=== PATIENT | male | born 1950 | race Caucasian/White ===

== ENCOUNTER 2017-09-08 09:24 | Observation (INO) | payer MEDICARE ==
[~2017-09-08] VITALS: Ht 167.6 cm; Wt 73.5 kg
[2017-09-08 11:00] LABS: BASOPHILS # (AUTO) 0.03 x10^3/uL (0-0.1); BASOPHILS % (AUTO) 0 % (0-1); EOSINOPHILS # (AUTO) 0.07 x10^3/uL (0-0.4); EOSINOPHILS % (AUTO) 1 % (1-7); LYMPHOCYTES # (AUTO) 1.51 x10^3/uL (1-3.4); LYMPHOCYTES % (AUTO) 16 % (22-44); MD NO; MEAN CORPUSCULAR HEMOGLOBIN 34.2 pg (27.5-34.5); MEAN CORPUSCULAR HGB CONC 34.3 g/dL (33.2-36.2); MEAN CORPUSCULAR VOLUME 99.9 fL (81-97); MEAN PLATELET VOLUME 7.6 fL (7.4-10.4); MONOCYTES # (AUTO) 0.77 x10^3/uL (0.2-0.8); MONOCYTES % (AUTO) 8 % (2-9); NEUTROPHILS # (AUTO) 7.16 x10^3/uL (1.8-6.8); NEUTROPHILS % (AUTO) 75 % (42-75); PLATELET COUNT 210 x10^3/uL (130-400); RED BLOOD COUNT 4.64 x10^6/uL (4.38-5.82)
[2017-09-08 11:10] LABS: ALBUMIN 4.1 g/dL (3.4-5.0); ANION GAP 9 mmol/L (5-15); CALCIUM 8.7 mg/dL (8.5-10.1); CHLORIDE 111 mmol/L (98-107); CREATININE 0.73 mg/dL (0.7-1.3)
[2017-09-08 11:14] LABS: TROPONIN I 0.027 ng/mL (0.000-0.045)
[2017-09-08] MEDS ORDERED: ASPIRIN 81 MG TABLET CHEW PO ONE (12:00)
[2017-09-08] MEDS ORDERED: ASPIRIN 81 MG TABLET CHEW ONE (12:11)
[2017-09-08 12:54] VITALS: BP 196/99
[2017-09-08] MEDS ORDERED: ALPR0.5T PO (13:14)
[2017-09-08] MEDS ORDERED: GUAIFENESIN/DM 200-20MG, 10ML UDC PO PRN (16:00)
[2017-09-08] MEDS ORDERED: ONDANSETRON 2MG/ML, 2ML IVPush PRN (16:00)
[2017-09-08] MEDS ORDERED: LABETALOL 5MG/ML, 20ML IVPush PRN (16:00)
[2017-09-08] MEDS ORDERED: HYDROcodone/APAP 5/325 TABLET PO PRN ×2 (16:00)
[2017-09-08] MEDS ORDERED: POLYETHYLENE GLYCOL 17 GM PACKET PO PRN (16:00)
[2017-09-08] MEDS ORDERED: ONDANSETRON ODT 4 MG PO PRN (16:00)
[2017-09-08] MEDS: ENOXAPARIN 40 MG/0.4 ML SQ SCH (16:03)
[2017-09-08] MEDS: LISINOPRIL 20 MG TABLET PO SCH (16:05)
[2017-09-08] MEDS: HYDROCHLOROTHIAZIDE 25 MG TABLET PO SCH (16:05)
[2017-09-08 16:28] LABS: CHOLESTEROL, TOTAL 160 mg/dL (140-239); TRIGLYCERIDES 105 mg/dL (50-200); VLDL CHOLESTEROL 21 mg/dL (0-25)
[2017-09-08 16:32] LABS: CHOL/HDL RATIO 3.5; FREE T4 (FREE THYROXINE) 0.94 ng/dL (0.76-1.46); HDL CHOL % 29 % (26-37); HDL CHOLESTEROL (DIRECT) 46 mg/dL (40-60); LDL CHOLESTEROL,CALCULATED 93 mg/dL (54-169); TROPONIN I 0.028 ng/mL (0.000-0.045)
[2017-09-08 21:37] VITALS: BP 149/75
[2017-09-08 22:55] LABS: TROPONIN I 0.041 ng/mL (0.000-0.045)
[2017-09-09] MEDS ORDERED: DIPHENHYDRAMINE 50 MG CAPSULE PO PRN (00:30)
[2017-09-09 01:49] VITALS: BP 114/62
[2017-09-09 05:22] LABS: BASOPHILS # (AUTO) 0.05 x10^3/uL (0-0.1); BASOPHILS % (AUTO) 1 % (0-1); EOSINOPHILS # (AUTO) 0.17 x10^3/uL (0-0.4); EOSINOPHILS % (AUTO) 3 % (1-7); LYMPHOCYTES # (AUTO) 2.47 x10^3/uL (1-3.4); LYMPHOCYTES % (AUTO) 35 % (22-44); MD NO; MEAN CORPUSCULAR HEMOGLOBIN 34.1 pg (27.5-34.5); MEAN CORPUSCULAR HGB CONC 33.7 g/dL (33.2-36.2); MEAN CORPUSCULAR VOLUME 101.4 fL (81-97); MEAN PLATELET VOLUME 7.7 fL (7.4-10.4); MONOCYTES # (AUTO) 0.77 x10^3/uL (0.2-0.8); MONOCYTES % (AUTO) 11 % (2-9); NEUTROPHILS # (AUTO) 3.56 x10^3/uL (1.8-6.8); NEUTROPHILS % (AUTO) 51 % (42-75); PLATELET COUNT 191 x10^3/uL (130-400); RED BLOOD COUNT 4.36 x10^6/uL (4.38-5.82); RED CELL DISTRIBUTION WIDTH 14.7 % (9.4-14.8)
[2017-09-09 05:27] LABS: ALANINE AMINOTRANSFERASE 29 U/L (12-78); ALBUMIN 3.6 g/dL (3.4-5.0); ANION GAP 10 mmol/L (5-15); CALCIUM 8.4 mg/dL (8.5-10.1); CHLORIDE 106 mmol/L (98-107); CREATININE 0.87 mg/dL (0.7-1.3)
[2017-09-09 05:37] LABS: ALKALINE PHOSPHATASE 60 U/L (45-117); BILIRUBIN,TOTAL 1.5 mg/dL (0.2-1.0); TOTAL PROTEIN 6.4 g/dL (6.4-8.2)
[2017-09-09] MEDS: ASPIRIN 81 MG TABLET EC PO SCH (06:17)
[2017-09-09 07:46] VITALS: BP 138/69
[2017-09-09] MEDS: SENNA/DOCUSATE TABLET PO SCH (07:52)
[2017-09-09] MEDS: LISINOPRIL 20 MG TABLET PO SCH (07:56)
[2017-09-09] MEDS ORDERED: REGADENOSON 0.4 MG/5 ML SYRINGE ONE (08:29)
[2017-09-09 12:58] VITALS: BP 149/73
[2017-09-09] MEDS: HYDROCHLOROTHIAZIDE 25 MG TABLET PO SCH (17:55)
[2017-09-09] MEDS: ENOXAPARIN 40 MG/0.4 ML SQ SCH (17:55)
[2017-09-09 18:50] VITALS: BP 120/62
[2017-09-10 02:27] VITALS: BP 137/71
[2017-09-10] MEDS: ASPIRIN 81 MG TABLET EC PO SCH (05:20)
[2017-09-10 07:24] LABS: BASOPHILS # (AUTO) 0.15 x10^3/uL (0-0.1); BASOPHILS % (AUTO) 2 % (0-1); EOSINOPHILS # (AUTO) 0.13 x10^3/uL (0-0.4); EOSINOPHILS % (AUTO) 2 % (1-7); LYMPHOCYTES # (AUTO) 2.01 x10^3/uL (1-3.4); LYMPHOCYTES % (AUTO) 31 % (22-44); MD NO; MEAN CORPUSCULAR HEMOGLOBIN 33.4 pg (27.5-34.5); MEAN CORPUSCULAR HGB CONC 33.4 g/dL (33.2-36.2); MEAN CORPUSCULAR VOLUME 100.1 fL (81-97); MEAN PLATELET VOLUME 7.5 fL (7.4-10.4); MONOCYTES # (AUTO) 0.73 x10^3/uL (0.2-0.8); MONOCYTES % (AUTO) 11 % (2-9); NEUTROPHILS # (AUTO) 3.38 x10^3/uL (1.8-6.8); NEUTROPHILS % (AUTO) 53 % (42-75); PLATELET COUNT 190 x10^3/uL (130-400); RED BLOOD COUNT 4.63 x10^6/uL (4.38-5.82); RED CELL DISTRIBUTION WIDTH 14.9 % (9.4-14.8)
[2017-09-10 07:25] VITALS: BP 119/70
[2017-09-10 07:32] LABS: ANION GAP 9 mmol/L (5-15); CALCIUM 8.3 mg/dL (8.5-10.1); CHLORIDE 109 mmol/L (98-107); CREATININE 0.84 mg/dL (0.7-1.3)
[2017-09-10] MEDS: SENNA/DOCUSATE TABLET PO SCH (08:00)
[2017-09-10] MEDS: HYDROCHLOROTHIAZIDE 25 MG TABLET PO SCH (08:41)
[2017-09-10] MEDS: LISINOPRIL 20 MG TABLET PO SCH (08:41)
[2017-09-10] MEDS ORDERED: ASPI-621 PO (08:57)
[2017-09-10] MEDS ORDERED: CARV3.1212 PO (08:57)
[2017-09-10] MEDS ORDERED: ATOR20TA PO (08:57)
[2017-09-10] MEDS ORDERED: HYDR25TA11 PO (08:59)
[2017-09-10] MEDS ORDERED: LISI-170 PO (08:59)
== END 2017-09-10 11:20 | disposition home or self-care (01) ==
LOC: ED 11:34 → INTOOBSV 11:35 → EDIP 11:35 → ED 11:50 → 5SO 12:48 → DCLOUNGE 09-10 11:00
PROVIDERS: ADMIT Hospitalist; ATTEND Hospitalist
DX: R07.89 Other chest pain (principal); I50.30 Unspecified diastolic (congestive) heart failure; I11.0 Hypertensive heart disease with heart failure; I16.0 Hypertensive urgency; I25.10 Atherosclerotic heart disease of native coronary artery without angina pectoris; D75.89 Other specified diseases of blood and blood-forming organs; F41.1 Generalized anxiety disorder; R79.89 Other specified abnormal findings of blood chemistry; Z87.891 Personal history of nicotine dependence; Z82.49 Family history of ischemic heart disease and other diseases of the circulatory system
CPT/HCPCS: 36415; 71045; 78452; 80048; 80053; 80061; 82040; 83735; 84100; 84439; 84443; 84484; 85025; 93005; 93017; 93306; 96372; 99285; A9502; C9898; G0378; J1650; J2785

== ENCOUNTER 2017-10-24 16:40 | Emergency (ER) | payer MEDICARE ==
[~2017-10-24] VITALS: Ht 167.6 cm; Wt 75.0 kg
[~2017-10-24 16:40] MED LIST: ALPR0.5T PO; ASPI-621 PO; ATOR20TA PO; CARV3.1212 PO; HYDR25TA11 PO; LISI-170 PO
[2017-10-24] MEDS ORDERED: SODIUM CHLORIDE FLUSH 10ML SYR IVF ONE (17:30)
[2017-10-24 17:41] LABS: BASOPHILS # (AUTO) 0.05 x10^3/uL (0-0.1); BASOPHILS % (AUTO) 1 % (0-1); EOSINOPHILS # (AUTO) 0.07 x10^3/uL (0-0.4); EOSINOPHILS % (AUTO) 1 % (1-7); LYMPHOCYTES # (AUTO) 1.79 x10^3/uL (1-3.4); LYMPHOCYTES % (AUTO) 24 % (22-44); MD NO; MEAN CORPUSCULAR HEMOGLOBIN 33.3 pg (27.5-34.5); MEAN CORPUSCULAR HGB CONC 33.3 g/dL (33.2-36.2); MEAN CORPUSCULAR VOLUME 100.2 fL (81-97); MEAN PLATELET VOLUME 7.9 fL (7.4-10.4); MONOCYTES # (AUTO) 0.66 x10^3/uL (0.2-0.8); MONOCYTES % (AUTO) 9 % (2-9); NEUTROPHILS # (AUTO) 5.02 x10^3/uL (1.8-6.8); NEUTROPHILS % (AUTO) 66 % (42-75); PLATELET COUNT 177 x10^3/uL (130-400); RED BLOOD COUNT 4.56 x10^6/uL (4.38-5.82); RED CELL DISTRIBUTION WIDTH 15.3 % (9.4-14.8)
[2017-10-24 17:51] LABS: ALBUMIN 3.5 g/dL (3.4-5.0); ANION GAP 8 mmol/L (5-15); CHLORIDE 108 mmol/L (98-107)
[2017-10-24 17:57] LABS: CREATININE 0.95 mg/dL (0.7-1.3); TROPONIN I 0.029 ng/mL (0.000-0.045)
[2017-10-24 19:34] VITALS: BP 151/78
== END 2017-10-24 19:35 | disposition home or self-care (01) ==
LOC: ED 19:32
DX: F41.1 Generalized anxiety disorder (principal); F41.0 Panic disorder [episodic paroxysmal anxiety]; I11.9 Hypertensive heart disease without heart failure; I44.7 Left bundle-branch block, unspecified; Z87.891 Personal history of nicotine dependence
CPT/HCPCS: 36415; 71045; 80048; 82040; 84484; 85025; 93005; 99285

== ENCOUNTER → 2018-11-06 | Outpatient (CLI) | payer MEDICARE ==
[~2018-11-06] MED LIST changes: -ASPI-621 PO; +ASPI81TA45 PO
== END | disposition home or self-care (01) ==
LOC: CVU 15:38
PROVIDERS: ATTEND Internal Medicine Cardiovascular Disease
DX: I08.3 Combined rheumatic disorders of mitral, aortic and tricuspid valves (principal); I10 Essential (primary) hypertension; E78.5 Hyperlipidemia, unspecified
CPT/HCPCS: 93306

== ENCOUNTER → 2020-02-22 | Outpatient (CLI) | payer MEDICARE ==
[~2020-02-22] MED LIST changes: +HYDR-826 PO; -HYDR25TA11 PO
== END | disposition home or self-care (01) ==
LOC: CFH 13:50
PROVIDERS: ATTEND Internal Medicine Cardiovascular Disease
DX: I35.1 Nonrheumatic aortic (valve) insufficiency (principal); I25.5 Ischemic cardiomyopathy; E78.5 Hyperlipidemia, unspecified; I11.9 Hypertensive heart disease without heart failure
CPT/HCPCS: 93306

== ENCOUNTER 2020-10-19 08:39 | Day surgery (SDC) | payer MEDICARE ==
[~2020-10-19] VITALS: Ht 167.6 cm; Wt 77.3 kg
[2020-10-19] MEDS ORDERED: DIPHENHYDRAMINE 50 MG/ML, 1ML IVPush ONE (09:00)
[2020-10-19] MEDS ORDERED: SODIUM CHLORIDE 0.9% 1,000 ML IV SCH ×2 (09:00→12:00)
[2020-10-19 09:07] VITALS: BP 122/68
[2020-10-19] MEDS ORDERED: CARV3.1212 PO ×2 (09:13→12:01)
[2020-10-19] MEDS ORDERED: SERT50TA28 PO (09:13)
[2020-10-19] MEDS ORDERED: ASPI-1026 PO (09:13)
[2020-10-19] MEDS ORDERED: LORA-445 PO (09:17)
[2020-10-19 09:26] LABS: BASOPHILS % (AUTO) 1 % (0-1); EOSINOPHILS % (AUTO) 2 % (1-7); LYMPHOCYTES % (AUTO) 33 % (22-44); MEAN CORPUSCULAR HEMOGLOBIN 35.6 pg (27.5-34.5); MEAN CORPUSCULAR HGB CONC 34.4 g/dL (33.2-36.2); MONOCYTES % (AUTO) 9 % (2-9); NEUTROPHILS % (AUTO) 55 % (42-75); PLATELET COUNT 185 x10^3/uL (130-400); RED CELL DISTRIBUTION WIDTH 13.4 % (9.4-14.8)
[2020-10-19] MEDS ORDERED: DIPHENHYDRAMINE 50 MG/ML, 1ML ONE (09:28)
[2020-10-19 09:31] LABS: MD NO
[2020-10-19 09:38] LABS: ANION GAP 5 mmol/L (5-15); CALCIUM 8.5 mg/dL (8.5-10.1); CHLORIDE 110 mmol/L (98-107); CHOLESTEROL, TOTAL 137 mg/dL (140-239); CREATININE 0.65 mg/dL (0.7-1.3); TRIGLYCERIDES 111 mg/dL (50-200); VLDL CHOLESTEROL 22 mg/dL (0-25)
[2020-10-19 09:39] LABS: INTERNATIONAL NORMALIZED RATIO 1.11 (0.93-1.1); PROTHROMBIN TIME 11.9 Seconds (9.6-11.5)
[2020-10-19 09:41] LABS: CHOL/HDL RATIO 2.2; HDL CHOL % 45 % (26-37); HDL CHOLESTEROL (DIRECT) 61 mg/dL (40-60); LDL CHOLESTEROL,CALCULATED 54 mg/dL (54-169); LDL/HDL RATIO 0.9 (0.5-3.0)
[2020-10-19] MEDS ORDERED: FENTANYL PF 100 MCG/2ML ONE (10:17)
[2020-10-19] MEDS ORDERED: MIDAZOLAM 1 MG/ML, 5ML ONE (10:17)
[2020-10-19] MEDS ORDERED: VERAPAMIL 2.5 MG/ML, 2ML ONE (10:17)
[2020-10-19] MEDS ORDERED: NITROGLYCERIN 5 MG/ML, 10ML ONE (10:18)
[2020-10-19] MEDS ORDERED: LIDOCAINE-MPF 1%, 5ML ONE (10:18)
[2020-10-19] MEDS ORDERED: HEPARIN 1,000 UNITS/ML, 10ML ONE (10:18)
[2020-10-19] MEDS ORDERED: LIDOCAINE 1%, 20ML ONE (11:03)
[2020-10-19] MEDS ORDERED: ISOS30TA8 PO (12:01)
[2020-10-19] MEDS ORDERED: SIMV40TA20 PO (12:01)
[2020-10-19] MEDS ORDERED: ASPI81TA45 PO (12:08)
== END 2020-10-19 14:12 | disposition home or self-care (01) ==
LOC: CACL 08:39
PROVIDERS: ATTEND Internal Medicine Cardiovascular Disease
DX: I25.119 Atherosclerotic heart disease of native coronary artery with unspecified angina pectoris (principal); I25.82 Chronic total occlusion of coronary artery; I25.83 Coronary atherosclerosis due to lipid rich plaque; I71.2 Thoracic aortic aneurysm, without rupture; I25.5 Ischemic cardiomyopathy; I73.9 Peripheral vascular disease, unspecified; I10 Essential (primary) hypertension; E78.2 Mixed hyperlipidemia; J44.9 Chronic obstructive pulmonary disease, unspecified; Z79.899 Other long term (current) drug therapy; Z87.891 Personal history of nicotine dependence
CPT/HCPCS: 36415; 80048; 80061; 85025; 85610; 93454; 99156; 99157; C1760; C1769; C1894; J1200; J1644; J2250; J3010; Q9967

== ENCOUNTER 2021-02-26 12:24 | Outpatient (CLI) | payer MEDICARE ==
[~2021-02-26 12:24] MED LIST changes: +ASPI-1026 PO; +ISOS30TA8 PO; +LORA-445 PO; +SERT50TA28 PO; +SIMV40TA20 PO
== END 2021-02-26 23:59 | disposition home or self-care (01) ==
LOC: CVU 12:24
PROVIDERS: ATTEND Registered Nurse
DX: I06.1 Rheumatic aortic insufficiency (principal); I65.23 Occlusion and stenosis of bilateral carotid arteries; I11.9 Hypertensive heart disease without heart failure; I25.5 Ischemic cardiomyopathy; I73.9 Peripheral vascular disease, unspecified
CPT/HCPCS: 93306; 93880